=== PATIENT | female | born 1970 | race Caucasian/White ===

== ENCOUNTER → 2017-02-11 | Outpatient (REF) | payer OTHER ==
[~2017-02-11] MED LIST: No Historical Meds
== END ==
LOC: M SFHCWAGY 16:30
PROVIDERS: ATTEND Nurse Practitioner Family
DX: Z12.4 Encounter for screening for malignant neoplasm of cervix (principal)

== ENCOUNTER → 2017-02-11 | Outpatient (CLI) | payer OTHER ==
--- NOTE | 2017-02-11 16:28 | REPMRS ---
Patient History The patient states she had a clinical breast exam in January 2017. Patient is nulliparous. Family history of colorectal cancer in paternal grandfather at age 58. Digital Mammo Screening Bilat: February 11, 2017 - Exam #: [id number] Bilateral CC and MLO view(s) were taken. Technologist: Sahara Marshall, Technologist Prior study comparison: December 02, 2015, digital mammo diagnostic bilateral performed at [facility]. January 05, 2014, digital mammo diagnostic bilateral performed at [facility]. August 09, 2009, bilateral digital mammo screening bilat performed at [facility]. FINDINGS: The breast tissue is heterogeneously dense. This may lower the sensitivity of mammography. There is a moderate amount of heterogeneously dense fibroglandular tissue which is fairly symmetric. There is no interval development of dominant mass, architectural distortion, or clustered microcalcification typical of malignancy. There has been no change in the appearance of the mammogram from the prior studies. ASSESSMENT: BI-RADS/ACR category 1 mammogram. Negative. Recommendation Routine screening mammogram of both breasts in 1 year (for women over age 40). This mammogram was interpreted with the aid of an FDA-approved computer-aided dectection system. Electronically Signed By: Gurinder Rinaldi MD 02/11/17 [id number]
== END ==
LOC: M RAD 15:51
PROVIDERS: ATTEND Nurse Practitioner Family
DX: Z12.31 Encounter for screening mammogram for malignant neoplasm of breast (principal)

== ENCOUNTER → 2017-02-12 | Outpatient (REF) | payer OTHER | LOC: M SFHCWAGY 08:47 | PROVIDERS: ATTEND Nurse Practitioner Family | DX: Z12.4 Encounter for screening for malignant neoplasm of cervix (principal) ==

== ENCOUNTER → 2018-12-16 | Outpatient (REF) | payer OTHER ==
[2018-12-18 14:12] LABS: HPV HYBRID CAPTURE II Negative (Negative)
== END ==
LOC: M SFHCWAGY 09:13
PROVIDERS: ATTEND Nurse Practitioner Family
DX: Z12.4 Encounter for screening for malignant neoplasm of cervix (principal)
CPT/HCPCS: 87624; G0123

== ENCOUNTER 2019-11-12 08:52 | Day surgery (SDC) | payer OTHER ==
[~2019-11-12] VITALS: Ht 177.8 cm; Wt 77.1 kg
[~2019-11-12 08:52] MED LIST changes: +APAP325T4 PO; +MULTCAP PO; +NS 1,000 ML IV ONE
[2019-11-12] MEDS ORDERED: propofoL 500 MG/50 ML VIAL As Ordered ONE (10:09)
[2019-11-12] MEDS ORDERED: LIDOCAINE 2% INJ 100 MG/5 ML SDV (FOR ANES.) As Ordered ONE (10:09)
--- NOTE | 2019-11-12 10:27 | ROOR ---
Patient Name: Shanae Quezada Procedure Date: 11/12/2019 10:08 AM Date of : 1970 Age: 49 Room: [facility] Gender: Female Note Status: Finalized Procedure: Colonoscopy Indications: Rectal bleeding Providers: Van Puga Jr, MD Referring MD: JIM Golden Pa-c Requesting Provider: Medicines: Propofol per Anesthesia Complications: No immediate complications. Procedure: Pre-Anesthesia Assessment: - Prior to the procedure, a History and Physical was performed, and patient medications and allergies were reviewed. The patient is competent. The risks and benefits of the procedure and the sedation options and risks were discussed with the patient. All questions were answered and informed consent was obtained. Patient identification and proposed procedure were verified by the physician and the nurse in the pre-procedure area and in the procedure room. Mental Status Examination: alert and oriented. Airway Examination: normal oropharyngeal airway and neck mobility. Respiratory Examination: clear to auscultation. CV Examination: normal. ASA Grade Assessment: II - A patient with mild systemic disease. After reviewing the risks and benefits, the patient was deemed in satisfactory condition to undergo the procedure. The anesthesia plan was to use moderate sedation / analgesia (conscious sedation). Immediately prior to administration of medications, the patient was re-assessed for adequacy to receive sedatives. The heart rate, respiratory rate, oxygen saturations, blood pressure, adequacy of pulmonary ventilation, and response to care were monitored throughout the procedure. The physical status of the patient was re-assessed after the procedure. The Colonoscope was introduced through the anus and advanced to the cecum, identified by appendiceal orifice and ileocecal valve. The colonoscopy was performed without difficulty. The patient tolerated the procedure well. The quality of the bowel preparation was adequate. Findings: The rectum, recto-sigmoid colon, sigmoid colon, descending colon, transverse colon, ascending colon, cecum, appendiceal orifice and ileocecal valve appeared normal. Impression: - The rectum, recto-sigmoid colon, sigmoid colon, descending colon, transverse colon, ascending colon, cecum, appendiceal orifice and ileocecal valve are normal. - No specimens collected. Recommendation: - Discharge patient to home (ambulatory). - Repeat colonoscopy in 10 years for screening purposes. Van Puga MD Van Puga Jr, MD 11/12/2019 10:27:00 AM Electronically signed by Van Puga Jr, MD Number of Addenda: 0 Note Initiated On: 11/12/2019 10:08 AM Estimated Blood Loss: Estimated blood loss: none.
[2019-11-12 10:45] VITALS: BP 127/80
== END 2019-11-12 10:55 | disposition home or self-care (01) ==
LOC: M OPP 08:52
PROVIDERS: ATTEND Surgery
DX: K62.5 Hemorrhage of anus and rectum (principal); Z88.8 Allergy status to other drugs, medicaments and biological substances

== ENCOUNTER → 2020-02-11 | Outpatient (CLI) | payer OTHER ==
[~2020-02-11] MED LIST changes: -NS 1,000 ML IV ONE
--- NOTE | 2020-02-11 15:40 | REP ---
COMPLETE BILATERAL BREAST SONOGRAPHY: HISTORY: Extremely dense breast parenchyma on mammography. Most recent comparison mammography is from February 11, 2017. SONOGRAPHIC FINDINGS: Heterogeneous fibroglandular background echotexture is seen. There are multiple bilateral cysts. No suspicious masses seen in either breast. No architectural distortion or suspicious acoustic shadowing is seen. On the right at 3-o'clock position, 1 cm from the nipple there is a cyst measuring 1.1 cm. At 9- o'clock position, 6 cm from the nipple on the right there is a 0.7 cm cyst. There is a 1.3 cm cyst in the retroareolar region on the right. On the left there are multiple cysts seen. At 1-o'clock position in the left breast 3 cm from the nipple there is a 1.8 cm cysts. At 1-o'clock position, also 3 cm from the nipple there is a 2.6 cm cyst. At 2-o'clock position in the left breast 3 cm from the nipple there is a 1.4 cm cyst. IMPRESSION: BIRADS category 2 benign findings. No suspicious sonographic abnormality. Multiple breast cysts. Although this patient's heterogeneously dense breast parenchymal pattern does lower the sensitivity of mammography, screening mammography is still recommended.
== END ==
LOC: M WHC 12:51
PROVIDERS: ATTEND Nurse Practitioner Family
DX: R92.2 Inconclusive mammogram (principal)

== ENCOUNTER → 2020-05-23 | Outpatient (REF) | payer OTHER | LOC: M LAB REF 14:59 | PROVIDERS: ATTEND Nurse Practitioner Family | DX: Z12.4 Encounter for screening for malignant neoplasm of cervix (principal); N76.0 Acute vaginitis | CPT/HCPCS: 87624; G0123 ==

== ENCOUNTER → 2023-08-15 | Outpatient (CLI) | payer OTHER ==
[2023-08-15 14:22] LABS: HEMATOCRIT 42.3 % (36.0-47.0); MEAN CORPUSCULAR HEMOGLOBIN 29.7 pg (27.0-33.0); MEAN CORPUSCULAR HGB CONC 33.1 g/dl (32.0-36.5); MEAN CORPUSCULAR VOLUME 89.6 fl (80.0-96.0); PLATELET COUNT, AUTOMATED 173 10^3/uL (150-450); RED BLOOD COUNT 4.72 10^6/uL (4.00-5.40); WHITE BLOOD COUNT 4.9 10^3/uL (4.0-10.0)
[2023-08-15 14:29] LABS: HEMOGLOBIN A1c 5.1 % (4.0-6.0)
[2023-08-15 14:37] LABS: CREATININE, URINE 28.6 MG/DL
[2023-08-15 14:38] LABS: C REACTIVE PROTEIN QUANTITATIV < 0.40 MG/DL (<1.0); MALB URINE SIEMENS < 3.0 MG/L; MAU/CREAT RATIO 10.4 MCG/MG (0.0-30.0)
[2023-08-15 14:42] LABS: ALBUMIN 4.2 G/DL (3.2-5.2); ALKALINE PHOSPHATASE 97 U/L (46-116); ALT/SGPT 21 U/L (7.0-40); AST/SGOT 12 U/L (<34); BILIRUBIN,TOTAL 0.6 MG/DL (0.3-1.2); BLOOD UREA NITROGEN 14 MG/DL (9-23); CALCIUM LEVEL 9.2 MG/DL (8.5-10.1); CARBON DIOXIDE LEVEL 29 MMOL/L (20-31); CHLORIDE LEVEL 104 MMOL/L (98-107); CHOLESTEROL LEVEL 231 MG/DL (<200); CHOLESTEROL RISK RATIO 3.48 (<5); CREATININE FOR GFR 0.82 MG/DL (0.55-1.30); FERRITIN 65.9 NG/ML (7.3-270.7); FREE T4 0.87 NG/DL (0.89-1.76); GLOMERULAR FILTRATION RATE > 60.0 (>51); GLUCOSE, FASTING 89 MG/DL (60-100); HDL CHOLESTEROL 66.3 MG/DL (>40); LDL CHOLESTEROL 142.9 MG/DL (<100); NON-HDL-C 164.7 MG/DL; SODIUM LEVEL 139 MMOL/L (136-145); THYROID STIMULATING HORMONE 1.227 uIU/ML (0.55-4.78); TOTAL 25(OH) VITAMIN D 31.2 NG/ML (20.0-100.0); TRIGLYCERIDES LEVEL 109 MG/DL (<150); VITAMIN B12 LEVEL 387 PG/ML (211-911)
== END ==
LOC: M PLALAB 10:40
PROVIDERS: ATTEND Internal Medicine Hematology
DX: Z00.00 Encounter for general adult medical examination without abnormal findings (principal)

== ENCOUNTER → 2023-10-06 | Outpatient (REF) | payer OTHER | LOC: M LAB REF 17:33 | PROVIDERS: ATTEND Physician Assistant Medical | DX: B34.9 Viral infection, unspecified (principal) ==

== ENCOUNTER 2023-12-12 10:17 | Inpatient (IN) | payer OTHER ==
[~2023-12-12] VITALS: Ht 177.8 cm; Wt 81.3 kg
[2023-12-12 14:45] LABS: HEMATOCRIT 41.4 % (36.0-47.0); LYMPH # 1.2 10^3/uL (1.5-5.0); LYMPH % 13.1 % (24.0-44.0); MEAN CORPUSCULAR HEMOGLOBIN 30.1 pg (27.0-33.0); MEAN CORPUSCULAR HGB CONC 33.8 g/dl (32.0-36.5); MONO # 0.6 10^3/uL (0.0-0.8); MONO % 6.2 % (2.0-8.0); NEUTROPHILS # 7.2 10^3/uL (1.5-8.5); NEUTROPHILS % 80.4 % (36.0-66.0); PLATELET COUNT, AUTOMATED 177 10^3/uL (150-450); RED BLOOD COUNT 4.65 10^6/uL (4.00-5.40); WHITE BLOOD COUNT 8.9 10^3/uL (4.0-10.0)
[2023-12-12 14:52] LABS: ERYTHROCYTE SEDIMENTATION RATE 34 mm/hr (0-30)
[2023-12-12 15:04] LABS: BLOOD UREA NITROGEN 7 MG/DL (9-23); CALCIUM LEVEL 9.7 MG/DL (8.5-10.1); CARBON DIOXIDE LEVEL 29 MMOL/L (20-31); CHLORIDE LEVEL 104 MMOL/L (98-107); CREATININE FOR GFR 0.73 MG/DL (0.55-1.30); GLOMERULAR FILTRATION RATE > 60.0 (>51); GLUCOSE, FASTING 93 MG/DL (60-100); POTASSIUM SERUM 4.1 MMOL/L (3.5-5.1); SODIUM LEVEL 139 MMOL/L (136-145)
[2023-12-12] MEDS ORDERED: THERTAB52 PO (15:08)
[2023-12-12] MEDS ORDERED: HOME MED LIST COMPLETE! XX SCH ×2 (15:10→18:55)
[2023-12-12] MEDS: KETOROLAC 30 MG/ML 1ML VIAL IV ONE (16:19)
[2023-12-12] MEDS: CLINDAMYCIN 900 MG in IV 1 EA IV ONE (17:20)
[2023-12-12] MEDS ORDERED: MULTCHW14 PO (18:53)
[2023-12-12] MEDS ORDERED: VANCOMYCIN HCL 2,020 MG in IV FLUID PLACE HOLDER 1 EA IV ONE (19:25)
[2023-12-12] MEDS ORDERED: VANCOMYCIN HCL 1,200 MG in IV FLUID PLACE HOLDER 1 EA IV SCH (19:25)
[2023-12-12] MEDS ORDERED: MOM 30ML SUSPENSION UDC PO PRN (19:45)
[2023-12-12] MEDS ORDERED: MAALOX 30 ML SUSP *UDC PO PRN (19:45)
[2023-12-12] MEDS: NS 1,000 ML IV SCH (20:11)
[2023-12-12] MEDS: ACETAMINOPHEN TAB 650MG DOSE (2X325MG) PO PRN (20:12)
[2023-12-12] MEDS: VANCOMYCIN HCL 1,000 MG, VIAL MATE ADAPTER 1 EACH in D5W 250 ML IV ONE ×2 (21:19→22:57)
[2023-12-12] MEDS: DOCUSATE SODIUM 100MG CAPSULE PO SCH (21:26)
[2023-12-12 22:19] VITALS: BP 132/86; TEMP 99; O2SAT 95
[2023-12-13] MEDS ORDERED: ACETAMINOPHEN 500 MG TAB PO PRN (00:35)
[2023-12-13] MEDS: ACETAMINOPHEN 500 MG TAB PO PRN (00:41)
[2023-12-13] MEDS: diphenhydrAMINE 25MG CAP PO PRN (00:41)
[2023-12-13 05:30] VITALS: BP 116/59; TEMP 98.2; O2SAT 98
[2023-12-13 06:36] LABS: HEMATOCRIT 39.5 % (36.0-47.0); MEAN CORPUSCULAR HEMOGLOBIN 29.4 pg (27.0-33.0); MEAN CORPUSCULAR HGB CONC 32.9 g/dl (32.0-36.5); MEAN CORPUSCULAR VOLUME 89.4 fl (80.0-96.0); PLATELET COUNT, AUTOMATED 164 10^3/uL (150-450); RED BLOOD COUNT 4.42 10^6/uL (4.00-5.40); WHITE BLOOD COUNT 6.5 10^3/uL (4.0-10.0)
[2023-12-13 06:48] LABS: ERYTHROCYTE SEDIMENTATION RATE 58 mm/hr (0-30)
[2023-12-13 06:55] LABS: ALBUMIN 3.6 G/DL (3.2-5.2); ALKALINE PHOSPHATASE 80 U/L (46-116); ALT/SGPT 16 U/L (7.0-40); AST/SGOT 9 U/L (<34); BILIRUBIN,TOTAL 0.8 MG/DL (0.3-1.2); BLOOD UREA NITROGEN 9 MG/DL (9-23); CALCIUM LEVEL 8.9 MG/DL (8.5-10.1); CARBON DIOXIDE LEVEL 28 MMOL/L (20-31); CHLORIDE LEVEL 106 MMOL/L (98-107); CREATININE FOR GFR 0.69 MG/DL (0.55-1.30); GLOMERULAR FILTRATION RATE > 60.0 (>51); GLUCOSE, FASTING 101 MG/DL (60-100); MAGNESIUM LEVEL 2.2 MG/DL (1.8-2.4); POTASSIUM SERUM 4.2 MMOL/L (3.5-5.1); SODIUM LEVEL 140 MMOL/L (136-145); TOTAL PROTEIN 6.6 G/DL (5.7-8.2)
[2023-12-13] MEDS: VANCOMYCIN HCL 750 MG, VIAL MATE ADAPTER 1 EACH in D5W 250 ML IV SCH (06:58)
[2023-12-13 07:06] LABS: PROCALCITONIN 0.05 ng/ml
[2023-12-13] MEDS ORDERED: LIDOCAINE 1% MDV 20ML VIAL As Ordered ONE (08:21)
[2023-12-13] MEDS: LACTOBACILLUS ACIDOPHILUS CAP (BACID) PO SCH (09:46)
[2023-12-13] MEDS: VANCOMYCIN HCL 500 MG in D5W MINI-BAG PLUS 100 ML IV SCH (09:48)
[2023-12-13 14:00] VITALS: BP 117/70; TEMP 98.8; O2SAT 96
[2023-12-13 19:37] VITALS: BP 120/73; TEMP 98.8; O2SAT 96
[2023-12-14 05:09] VITALS: BP 120/78; TEMP 98.4; O2SAT 95
[2023-12-14] MEDS: ENOXAPARIN 40MG/0.4ML SYRINGE (J1650 PER 10MG) SC SCH (08:09)
[2023-12-14] MEDS: DOXYCYCLINE HYCLATE 100MG TABLET PO SCH (09:58)
[2023-12-14] MEDS ORDERED: RISATAB3 PO (11:04)
[2023-12-14] MEDS ORDERED: DOXY100T PO (11:04)
[2023-12-14 14:00] VITALS: BP 121/78; TEMP 97.9; O2SAT 100
== END 2023-12-14 17:10 | disposition home or self-care (01) | DRG 601 ==
LOC: M ED 10:17 → M ED INP 19:31 → ENRESERV 21:18 → M MSPAV 22:07
PROVIDERS: ADMIT Family Medicine; ATTEND Student in an Organized Health Care Education/Training Program
PROC: 0H9T3ZX Drainage of Right Breast, Percutaneous Approach, Diagnostic (ICD-10-PCS; principal; 2023-12-13 08:00)
DX: N61.0 Mastitis without abscess (principal); N61.1 Abscess of the breast and nipple; F32.A Depression, unspecified; F41.9 Anxiety disorder, unspecified; K21.9 Gastro-esophageal reflux disease without esophagitis; Z88.0 Allergy status to penicillin; Z88.4 Allergy status to anesthetic agent; Z88.5 Allergy status to narcotic agent; Z88.8 Allergy status to other drugs, medicaments and biological substances; Z11.52 Encounter for screening for COVID-19

== ENCOUNTER → 2024-01-09 | Outpatient (REF) | payer OTHER ==
[~2024-01-09] MED LIST changes: +DOXY100T PO; +MULTCHW14 PO; +RISATAB3 PO; +THERTAB52 PO
== END ==
LOC: M SFHCWAGY 13:09
PROVIDERS: ATTEND Nurse Practitioner Family
DX: Z12.4 Encounter for screening for malignant neoplasm of cervix (principal)
CPT/HCPCS: 87624; G0123

== ENCOUNTER → 2025-01-11 | Outpatient (REF) | payer OTHER ==
[2025-01-13 15:07] LABS: HPV APTIMA Not Detected (Not Detected)
== END ==
LOC: M SFHCWAGY 13:32
PROVIDERS: ATTEND Nurse Practitioner Family
DX: Z12.4 Encounter for screening for malignant neoplasm of cervix (principal); R87.610 Atypical squamous cells of undetermined significance on cytologic smear of cervix (ASC-US)
CPT/HCPCS: 87624; G0123

== ENCOUNTER → 2025-07-15 | Outpatient (REF) | payer OTHER | LOC: M SFHCPLAZ 08:52 | PROVIDERS: ATTEND Family Medicine | DX: Z53.9 Procedure and treatment not carried out, unspecified reason (principal) ==